=== PATIENT | male | born 1950 | race Caucasian/White ===

== ENCOUNTER 2016-07-04 16:22 | Emergency (ER) | payer OTHER, MEDICARE ==
[~2016-07-04] VITALS: Ht 182.9 cm; Wt 124.0 kg
[~2016-07-04 16:22] MED LIST: COMBAER INH; CYCL-36 PO; HYDR7.5T76 PO; PROC60TA PO; VIBR100C PO
[2016-07-04 16:36] VITALS: BP 143/91; PULSE 82; RESP 20; TEMP 98.7; O2SAT 93
[2016-07-04] MEDS ORDERED: SODIUM CHLOR 0.9% 1000 ML INJ 1,000 ML IV SCH (16:43)
[2016-07-04] MEDS ORDERED: SODIUM CHLORIDE 0.9% FLUSH 5 ML FLUSH IVF PRN (16:45)
[2016-07-04] MEDS ORDERED: DIPHTH/TETANUS/ACEL PERTUSSIS (BOOSTER) 0.5 ML VIAL/PFS IM ONE (16:45)
[2016-07-04 17:15] LABS: AUTOMATED NEUTROPHIL # 7.3 TH/MM3 (1.8-7.7); BASOPHIL # 0.1 TH/MM3 (0-0.2); BASOPHIL % 1.1 % (0.0-2.0); EOSINOPHIL % 8.1 % (0.0-4.0); HEMO FLAGS DIFF FINAL; LYMPH % 25.3 % (9.0-44.0); MEAN CORPUSCULAR HGB CONC 33.8 % (32.0-36.0); NEUT % 60.5 % (16.0-70.0); PLATELET COUNT 337 TH/MM3 (150-450); RED BLOOD COUNT 4.53 MIL/MM3 (4.50-5.90); RED CELL DISTRIBUTION WIDTH 13.4 % (11.6-17.2)
[2016-07-04] MEDS ORDERED: RESP: ALBUTEROL 2.5 MG/3 ML NEB (SCH) NEB ONE (17:15)
[2016-07-04 17:26] LABS: APTT (PATIENT) 25.1 SEC (24.3-30.1); PROTHROMBIN TIME - PATIENT 10.9 SEC (9.8-11.6)
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
[2016-07-04] MEDS ORDERED: LORazepam 2 MG/ML VIAL IV PUSH ONE (17:30)
[2016-07-04] MEDS ORDERED: HALOPERIDOL LACTATE 5 MG/ML AMP IV ONE (17:30)
[2016-07-04 17:34] LABS: BICARBONATE 23.6 MEQ/L (21.0-32.0); POTASSIUM 3.4 MEQ/L (3.5-5.1)
[2016-07-04 17:40] VITALS: BP 123/77; PULSE 95; RESP 20; O2SAT 94
[2016-07-04] MEDS ORDERED: CYCL1TAB29 PO (18:30)
[2016-07-04] MEDS ORDERED: NIFE1TAB86 PO (18:30)
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
[2016-07-04] MEDS ORDERED: HYDR-3534 PO (20:08)
== END 2016-07-04 21:04 | disposition home or self-care (01) ==
LOC: NEPE 16:22
DX: N28.89 Other specified disorders of kidney and ureter (principal); Q79.0 Congenital diaphragmatic hernia; J98.11 Atelectasis; F10.129 Alcohol abuse with intoxication, unspecified; E87.6 Hypokalemia; N18.3 Chronic kidney disease, stage 3 (moderate); E11.9 Type 2 diabetes mellitus without complications; J45.909 Unspecified asthma, uncomplicated; V29.9XXA Motorcycle rider (driver) (passenger) injured in unspecified traffic accident, initial encounter; Y93.89 Activity, other specified; Y92.410 Unspecified street and highway as the place of occurrence of the external cause; Z23 Encounter for immunization; Z72.0 Tobacco use
CPT/HCPCS: 70450; 71010; 71250; 72125; 74176; 80048; 80320; 85025; 85610; 85730; 90471; 90715; 94664; 96361; 96374; 96375; 99285; J1630; J2060; J7030; J7613